=== PATIENT | female | born 1995 | race Caucasian/White ===

== ENCOUNTER 2019-08-08 12:53 | Inpatient (IN) | payer OTHER ==
[2019-08-08] MEDS ORDERED: Lidocaine 1% (PF) 30 ML VIAL SC PRN (13:57)
[2019-08-08] MEDS ORDERED: HYDROcodone/Acetaminophen 5/325 mg Tablet PO PRN ×2 (13:57)
[2019-08-08] MEDS ORDERED: Docusate 100 MG CAP PO PRN (13:57)
[2019-08-08] MEDS ORDERED: Ibuprofen 800 MG TAB PO PRN (13:57)
[2019-08-08] MEDS ORDERED: Zolpidem Tartrate 5 MG TAB PO PRN (13:57)
[2019-08-08] MEDS ORDERED: Ondansetron PF 4 MG/2 ML Vial IVP PRN ×3 (13:57→20:31)
[2019-08-08] MEDS ORDERED: Carboprost 250 MCG/ML AMP IM PRN (13:57)
[2019-08-08] MEDS ORDERED: Diphenoxylate HCl/Atropine Tablet PO PRN ×2 (13:57)
[2019-08-08] MEDS ORDERED: Acetaminophen 500 MG TAB PO PRN (13:57)
[2019-08-08] MEDS ORDERED: hydrALAZINE 20 MG/ML VIAL SLOW IVP PRN ×2 (13:57→20:31)
[2019-08-08] MEDS ORDERED: Misoprostol 200 MCG TAB PR PRN ×2 (13:57→20:31)
[2019-08-08] MEDS ORDERED: NS / Oxytocin 40 units/1000ml 1,000 ML IV PRN (13:57)
[2019-08-08] MEDS ORDERED: Butorphanol Tartrate 1 MG/ML VIAL SLOW IVP PRN (13:57)
[2019-08-08] MEDS ORDERED: Promethazine HCl 25 MG/ML VIAL IM PRN ×3 (13:57→20:31)
[2019-08-08] MEDS ORDERED: NS w/ Oxytocin 10 units 500 ML IV SCH (14:00)
[2019-08-08 14:26] VITALS: BMI 35.2
[2019-08-08 15:06] LABS: Hemoglobin 12.7 g/dL (12.0-16.0); Mean Corpuscular HGB CONC 34.8 g/dL (32.0-36.0); Mean Corpuscular Hemoglobin 32.6 pg (27.0-31.0); Mean Corpuscular Volume 93.9 fL (78.0-98.0); Mean Platelet Volume 9.5 fL (7.4-10.4); Platelet Count 211 thou/uL (130-400); RBC Distribution Width 10.4 % (11.5-14.5); White Blood Cell (WBC) Count 15.1 thou/uL (4.8-10.8)
[2019-08-08 15:27] LABS: ALT (SGPT) 14 U/L (8-55); AST (SGOT) 13 U/L (5-34); Albumin 3.2 g/dL (3.5-5.0); Alkaline Phosphatase 110 U/L (40-110); Anion Gap 12 mmol/L (10-20); BUN (Urea Nitrogen) 7 mg/dL (7.0-18.7); Bilirubin, Total 0.3 mg/dL (0.2-1.2); Calc. Creatinine Clearance 197 mL/min (70-130); Calcium 8.7 mg/dL (7.8-10.44); Carbon Dioxide 20 mmol/L (22-29); Chloride 110 mmol/L (98-107); Estimated GFR-MDRD Greater than 90; Globulin 2.8 g/dL (2.4-3.5); Glucose 89 mg/dL (70-105); Potassium 4.2 mmol/L (3.5-5.1); Sodium 138 mmol/L (136-145)
--- NOTE | 2019-08-08 15:33 | PDOC.LDHP ---
Labor and Delivery H&P HPI: 24 y/o at 37 and 2/7 weeks sent to L&D from clinic after 159/100 bp, 1+ protein, 10 pound weight gain in 1 weeks, all consistent with a new diagnosis of superimposed preeclampsia without severe features on top of mild range CHTN . Per ACOG guidelines, will start 37 week induction of labor. Current gestational age (weeks): 37 Due date: 08/27/19 Grav: 1 Para: 0 Current complications: hypertension Abnormal US findings: No Current medications: pre-petros vitamins Previous surgical history: none Allergies/Adverse Reactions: Allergies Allergy/AdvReac Type Severity Reaction Status Date / Time No Known Allergies Allergy Verified 08/08/19 14:18 Social history: none - Physical Exam Vital signs reviewed and normal: yes General: NAD, resting Heart: RRR Lungs: CTAB Abdomen: gravid Extremeties: pitting edema FHT: category 1 - Assessment L&D Assessment: medically indicated induction - Plan Plan: admit to L&D
[2019-08-08 15:43] LABS: HBSAg Index 0.17 S/CO (0-0.99); Hep B Surf Ag Non-Reactive S/CO (NonReactive); Syphilis Antibody Nonreactive (Nonreactive); Syphilis Antibody Index 0.02 S/CO (<1.00 Non-Reactive)
[2019-08-08] MEDS: Lactated Ringer's 1,000 ML IV SCH (16:10)
[2019-08-08] MEDS: Misoprostol 100 MCG TAB VAG SCH ×2 (16:10→20:47)
[2019-08-08] MEDS ORDERED: Bicitra 30 ML UDCUP ONE (18:58)
[2019-08-08] MEDS ORDERED: MORPHINE 5 MG/10 ML PF VIAL ONE (19:09)
[2019-08-08] MEDS ORDERED: Ondansetron PF 4 MG/2 ML Vial ONE (19:10)
[2019-08-08] MEDS ORDERED: Oxytocin 10 UNITS/ML VIAL ONE ×2 (19:10→19:36)
[2019-08-08] MEDS ORDERED: Ketorolac Tromethamine 30 MG/ML VIAL ONE (19:10)
[2019-08-08] MEDS ORDERED: PHENYLEPHRINE-NS 100 MCG/ML 10 ML SYRINGE ONE (19:10)
[2019-08-08] MEDS ORDERED: diphenhydrAMINE 50 MG/ML VIAL ONE (19:10)
[2019-08-08] MEDS ORDERED: Dexamethasone 4 mg/ml Vial ONE (19:10)
[2019-08-08] MEDS ORDERED: Promethazine HCl 25 MG/ML VIAL ONE (19:27)
[2019-08-08] MEDS ORDERED: Meperidine HCl/PF 25 MG/ML VIAL ONE (19:54)
[2019-08-08] MEDS ORDERED: Promethazine HCl 25 MG SUPP PR PRN (20:03)
[2019-08-08] MEDS ORDERED: Naloxone HCl 0.4 mg/ml Vial IV PRN (20:03)
[2019-08-08] MEDS ORDERED: L&D-Morphine 4 MG/ML VIAL SLOW IVP PRN (20:03)
[2019-08-08] MEDS ORDERED: Ondansetron HCl/PF 4 MG/2 ML Vial IVP PRN (20:03)
[2019-08-08] MEDS ORDERED: diphenhydrAMINE 50 MG/ML VIAL IVP PRN (20:03)
[2019-08-08] MEDS ORDERED: Naloxone HCl 0.4 mg/ml Vial IVP PRN ×2 (20:03)
[2019-08-08] MEDS ORDERED: Meperidine HCl/PF 25 MG/ML VIAL SLOW IVP PRN (20:03)
[2019-08-08] MEDS ORDERED: HYDROmorphone 2 MG/ML VIAL SLOW IVP PRN (20:03)
[2019-08-08] MEDS ORDERED: Communication Order-Pharmacy FS SCH (20:15)
[2019-08-08] MEDS ORDERED: Bisacodyl 10 MG SUPP PR PRN (20:31)
[2019-08-08] MEDS ORDERED: diphenhydrAMINE 25 MG CAP PO PRN (20:31)
[2019-08-08] MEDS ORDERED: Measles/Mumps/Rubella 10 MCG/0.5 ML VIAL SC ONE (20:31)
[2019-08-08] MEDS ORDERED: Adacel (T-DAP) 0.5 ML SYRINGE IM ONE (20:31)
[2019-08-08] MEDS ORDERED: Varicella virus, LIVE 0.5 ML VIAL SC ONE (20:31)
[2019-08-08] MEDS ORDERED: Calcium Gluconate 4.6 MEQ in Sodium Chloride 0.9% 100 ML IVPB PRN (20:33)
[2019-08-08] MEDS ORDERED: Magnesium Sulfate 20 gm/500 ml 20 GM/500 ML BAG ONE (20:33)
[2019-08-08] MEDS ORDERED: NS / Oxytocin 40 units/1000ml 1,000 ML IV SCH (20:45)
[2019-08-08] MEDS ORDERED: Magnesium Sulfate 20 GM/WATER 500 ML BAG IVPB SCH (20:45)
[2019-08-08] MEDS: NS w/ Oxytocin 10 units 500 ML IV SCH (20:46)
[2019-08-08] MEDS: Magnesium Sulfate 20 gm/500 ml 20 GM/500 ML BAG IVPB SCH (21:11)
[2019-08-08] MEDS: Docusate Calcium (SURFAK) 240 MG CAP PO SCH (21:35)
[2019-08-08] MEDS: Ferrous Sulfate 325 MG TAB PO SCH (21:36)
[2019-08-09] MEDS: Magnesium Sulfate 20 gm/500 ml 20 GM/500 ML BAG IVPB SCH ×2 (04:54→15:05)
[2019-08-09] MEDS: Misoprostol 100 MCG TAB VAG SCH ×3 (04:58→20:56)
[2019-08-09] MEDS: Ibuprofen 800 MG TAB PO SCH ×3 (04:59→21:42)
[2019-08-09 06:07] LABS: Hemoglobin 12.2 g/dL (12.0-16.0); Mean Corpuscular HGB CONC 33.6 g/dL (32.0-36.0); Mean Corpuscular Hemoglobin 31.3 pg (27.0-31.0); Mean Corpuscular Volume 93.4 fL (78.0-98.0); Mean Platelet Volume 9.6 fL (7.4-10.4); Platelet Count 234 thou/uL (130-400); RBC Distribution Width 10.4 % (11.5-14.5); White Blood Cell (WBC) Count 23.8 thou/uL (4.8-10.8)
[2019-08-09] MEDS: Lactated Ringer's 1,000 ML IV SCH ×3 (06:24→07:44)
[2019-08-09] MEDS: Ketorolac Tromethamine 30 MG/ML VIAL IVP SCH ×4 (09:49→21:40)
[2019-08-09] MEDS: Docusate Calcium (SURFAK) 240 MG CAP PO SCH ×2 (09:50→21:42)
[2019-08-09] MEDS: Ferrous Sulfate 325 MG TAB PO SCH ×2 (09:50→21:40)
[2019-08-09] MEDS: HYDROcodone/Acetaminophen 5/325 mg Tablet PO PRN ×2 (15:57→21:50)
[2019-08-09] MEDS: NS w/ Oxytocin 10 units 500 ML IV SCH (20:56)
[2019-08-09] MEDS: Simethicone Chewable 80 MG TAB PO PRN (22:55)
[2019-08-10] MEDS: HYDROcodone/Acetaminophen 5/325 mg Tablet PO PRN ×3 (05:10→20:29)
[2019-08-10] MEDS: Simethicone Chewable 80 MG TAB PO PRN (05:10)
[2019-08-10] MEDS: Ibuprofen 800 MG TAB PO SCH ×3 (05:10→21:37)
[2019-08-10] MEDS: Docusate Calcium (SURFAK) 240 MG CAP PO SCH ×2 (08:58→21:37)
[2019-08-10] MEDS: Ferrous Sulfate 325 MG TAB PO SCH ×2 (08:59→21:38)
--- NOTE | 2019-08-10 11:50 | PDOC.PP ---
Post Progress Note Post Day #: 1 PO intake tolerated: yes Flatus: yes Ambulation: yes Vital Signs (12 hours) Temp Pulse Resp BP Pulse Ox 08/10/19 07:39 98.3 F 88 20 122/69 96 08/10/19 05:10 98.5 F 78 16 133/74 Weight Weight 218 lb - Physical Examination Cardiovascular: no m/r/g Respiratory: clear to auscultation bilaterally Abdominal: + bowel sounds, lochia Extremities: negative homans (B) Skin: CS incision dry & intact, no rash Neurological: no gross focal deficits (Magnesium Sulfate is DC'ed. BP is stable. Pain well controlled.) Psychiatric: A&Ox3, normal affect Result Diagrams: 08/09/19 05:58 08/08/19 14:50 Additional Labs: Post Labs Blood Type A POSITIVE 08/08/19 15:33 Hep Bs Antigen Non-Reactive S/CO (NonReactive) 08/08/19 14:50
--- NOTE | 2019-08-10 11:51 | PDOC.PP ---
Post Progress Note Post Day #: 2 PO intake tolerated: yes Flatus: yes Ambulation: yes Vital Signs (12 hours) Temp Pulse Resp BP Pulse Ox 08/10/19 07:39 98.3 F 88 20 122/69 96 08/10/19 05:10 98.5 F 78 16 133/74 Weight Weight 218 lb - Physical Examination General: NAD Cardiovascular: no m/r/g, RRR Respiratory: clear to auscultation bilaterally, non-labored breathing Abdominal: + bowel sounds, lochia, no distention Extremities: negative homans (B) Skin: CS incision dry & intact, no rash Neurological: no gross focal deficits Psychiatric: A&Ox3 (Doing well. Zoloft 50mg has been restarted.), normal affect Result Diagrams: 08/09/19 05:58 08/08/19 14:50 Additional Labs: Post Labs Blood Type A POSITIVE 08/08/19 15:33 Hep Bs Antigen Non-Reactive S/CO (NonReactive) 08/08/19 14:50
--- NOTE | 2019-08-10 17:59 | OP ---
DATE OF PROCEDURE: 08/08/2019 [facility]ICE[facility]. PREOPERATIVE DIAGNOSIS: Intrauterine at 37 weeks and 2 days with preeclampsia with severe features, superimposed on chronic hypertension along with non-reassuring heart tones. POSTOPERATIVE DIAGNOSIS: Intrauterine at 37 weeks and 2 days with preeclampsia with severe features, superimposed on chronic hypertension along with non-reassuring heart tones. PROCEDURE: Primary low transverse section. FINDINGS: Viable male infant weighing 3490 g or 7 pounds 11 ounces, Apgars eight and nine. QUANTITATIVE BLOOD LOSS: 317 mL. COMPLICATIONS: None. DETAILS OF THE PROCEDURE: The patient was consented and taken back to the operating room where spinal anesthesia was found to be adequate. She was then prepped and draped in the normal sterile fashion. A timeout was performed by the entire operative team. The incision was then marked with a marking pen tested using sharp pickups. An incision was then made with a scalpel. The incision was carried through the adipose tissue down to the underlying rectus fascia using both sharp dissection as well as cautery. Once the fascia was identified, it was incised in the midline and then the fascial incision was carried through in both lateral directions using sharp as well as cautery dissection techniques. Next, the superior aspect of the rectus fascia was grasped with 2 Lisbeth clamps, which was tented up and the rectus muscles were dissected off using blunt dissection as well as cautery dissection. Similarly, the inferior aspect of the fascial incision was grasped with 2 Lisbeth clamps, tented up and the rectus muscles were dissected off bluntly as well as sharply. Next, the rectus muscles were in the midline and the peritoneum identified. The peritoneum was then carefully grasped with 2 hemostats and entered sharply. The peritoneal incision was extended superiorly and inferiorly and bladder blade was placed in the lower abdomen. At this point, the uterus was identified and the bladder flap was then developed using pickups with teeth as well as Metzenbaum scissors in both lateral directions. The bladder flap was then dissected downwards using the set o type operator's finger as well as Metzenbaum scissors. The bladder blade was replaced. The lower uterine segment was then identified and entered sharply using a clean scalpel. The uterine incision was then dissected downwards until thin layer of muscle remained and this was entered bluntly using a hemostat to avoid any injury to the baby. The uterine incision was then stretched using two fingers in both lateral directions. An amniotomy was performed artificially using a hemostat and the baby was delivered using fundal pressure in a gentle fashion. Once out, the baby's mouth and nose were bulb suctioned, cord clamped and cut, and the baby was handed to waiting attendants. Next, the uterus was exteriorized, cleared of all clots and debris and the uterine incision was repaired with #1 Monocryl in a running locking fashion. A 2nd suture of the same type was used to obtain complete hemostasis at the uterine incision. The bladder flap was reapproximated using 3-0 Monocryl. Next, patient's left and right adnexa were inspected and appeared to be within normal limits. The posterior cul-de-sac was blotted dry and hemostasis assured. One more look at the uterine incision demonstrated hemostasis. Next, the uterus was replaced back within the abdomen. The peritoneum was reapproximated using 2-0 Monocryl without difficulty. The rectus muscles were then allowed to come back together and 0 chromic was used to aid in reapproximation of the muscle as necessary. The rectus fascia was then reapproximated in a running fashion using 0 Vicryl suture. The adipose tissue was then examined and appeared to be well approximated without any obvious separations. Finally, the skin was reapproximated with 3-0 Monocryl on a Gus needle without difficulty and Dermabond adhesive was applied to the skin. Once the glue was dry, the drapes were removed and the patient was transferred to an ambulatory bed where she was taken to recovery awake and in stable condition. Sponge, lap, and needle counts were correct x3. Job ID: [id number]
[2019-08-11] MEDS: Ibuprofen 800 MG TAB PO SCH ×2 (06:09→14:16)
[2019-08-11] MEDS: Ferrous Sulfate 325 MG TAB PO SCH (07:54)
[2019-08-11] MEDS: Docusate Calcium (SURFAK) 240 MG CAP PO SCH (07:56)
[2019-08-11] MEDS: HYDROcodone/Acetaminophen 5/325 mg Tablet PO PRN ×2 (07:58→16:37)
[2019-08-11 11:45] VITALS: BP 138/80; TEMP 98.5
== END 2019-08-11 16:40 | disposition home or self-care (01) | DRG 788 ==
LOC: L&D 12:53 → 3SW 08-09 22:59
PROVIDERS: ADMIT Obstetrics & Gynecology; ATTEND Obstetrics & Gynecology
PROC: 10D00Z1 Extraction of Products of Conception, Low, Open Approach (ICD-10-PCS; principal; 2019-08-08)
PROC: 3E033VJ Introduction of Other Hormone into Peripheral Vein, Percutaneous Approach (ICD-10-PCS; 2019-08-08)
DX: O11.4 Pre-existing hypertension with pre-eclampsia, complicating childbirth (principal); Z3A.37 37 weeks gestation of pregnancy; Z37.0 Single live birth; O76 Abnormality in fetal heart rate and rhythm complicating labor and delivery
CPT/HCPCS: 36415; 51702; 80053; 82570; 83735; 84156; 85027; 86780; 86850; 86900; 86901; 87340; J0360; J0690; J1100; J1200; J1885; J2175; J2274; J2405; J2550; J2590; J3475